=== PATIENT | female | born 1945 | race Caucasian/White ===

== ENCOUNTER 2019-10-02 20:21 | Emergency (ER) | payer OTHER, SELFPAY ==
[~2019-10-02] VITALS: Ht 165.1 cm; Wt 90.7 kg
[2019-10-02 20:40] VITALS: BP 130/60
--- NOTE | 2019-10-02 20:40 | NUR ---
PT WAITING IN TENT FOR DOCTOR TO SEE PT.
--- NOTE | 2019-10-02 20:43 | NUR ---
DR. JOSEPH SEEN PT IN TENT, WANTS TO SWAB PT FOR COVID -19 AND THEN DC.
[2019-10-02 20:58] VITALS: BP 130/60
--- NOTE | 2019-10-02 21:00 | NUR ---
Patient discharged with v/s stable. Written and verbal after care instructions given and explained. Patient verbalized understanding. Ambulatory with steady gait. All questions addressed prior to discharge. Advised to follow up with PMD.
== END 2019-10-02 21:00 | disposition home or self-care (01) ==
LOC: EEVIPCON 20:21 → MED 20:21
DX: I10 Essential (primary) hypertension (principal); E11.9 Type 2 diabetes mellitus without complications; I51.89 Other ill-defined heart diseases; Z20.828 Contact with and (suspected) exposure to other viral communicable diseases
CPT/HCPCS: 99283; U0003